=== PATIENT | female | born 1945 | race Caucasian/White ===

== ENCOUNTER 2016-10-20 04:05 | Emergency (ER) | payer MEDICARE, OTHER ==
[2016-10-20 04:10] VITALS: BP 148/81
== END 2016-10-20 05:16 | disposition left against medical advice (07) ==
LOC: ER 04:05
DX: Z53.21 Procedure and treatment not carried out due to patient leaving prior to being seen by health care provider (principal)

== ENCOUNTER 2018-05-23 05:43 | Emergency (ER) | payer MEDICARE, OTHER ==
[2018-05-23] MEDS ORDERED: ONDANSETRON HCL INJ/PF 4 MG/2 ML SDV IV ONE (06:26)
[2018-05-23] MEDS ORDERED: FENTANYL CITRATE INJ/PF 100 MCG/2 ML AMPUL IV ONE (06:26)
[2018-05-23] MEDS ORDERED: KETOROLAC TROMETHAMINE INJ/PF 30 MG/1 ML SDV IV ONE (06:26)
--- NOTE | 2018-05-23 06:37 | ER Document Report ---
ED General - General Chief Complaint: Flank Pain Stated Complaint: BACK PAIN Time Seen by Provider: 05/23/18 06:21 Primary Care Provider: [facility] [Provider Group] - Follow up in 1 week Notes: 72-year-old female presents with left-sided lower pubic/suprapubic pain radiating to the left flank started 2 days ago, with stinging with urination that she thought was a UTI but is failed to improve with Cipro that she had "lying around" as well as some old "pain pills." Fever chills no history of dental surgery, positive history of stones and infections he denies symptoms down her legs, and denies vomiting but has some mild nausea. History of total hysterectomy. TRAVEL OUTSIDE OF THE [place] IN LAST 30 DAYS: No - Related Data Allergies/Adverse Reactions: codeine [Codeine] Allergy (Verified 06/30/15 19:04) Sulfa (Sulfonamide Antibiotics) Allergy (Verified 06/30/15 19:04) Past Medical History - Social History Smoking Status: Never Smoker Family History: CVA, Malignancy - Past Medical History Cardiac Medical History: Denies: Hx Coronary Artery Disease, Hx Heart Attack, Hx Hypercholesterolemia, Hx Hypertension, Hx Peripheral Vascular Disease, Hx Pulmonary Embolism, Hx Heart Murmur Pulmonary Medical History: Denies: Hx Asthma, Hx Bronchitis, Hx COPD, Hx Pneumonia, Hx Tuberculosis Neurological Medical History: Denies: Hx Cerebrovascular Accident, Hx Seizures Endocrine Medical History: Denies: Hx Diabetes Mellitus Type 1 Renal/ Medical History: Reports: Hx Kidney Stones. Denies: Hx Peritoneal Dialysis GI Medical History: Reports: Hx Hepatitis - C Infectious Medical History: Reports: Hx Hepatitis - C Past Surgical History: Reports: Hx Appendectomy, Hx Hysterectomy, Hx Kidney (Renal Surgery) - Removal of Kidney stones, Hx Oral Surgery. Denies: Hx Pacemaker - Immunizations Hx Diphtheria, Pertussis, Tetanus Vaccination: Yes Hx Pneumococcal Vaccination: 01/21/07 Review of Systems - Review of Systems Notes: REVIEW OF SYSTEMS GEN: Denies fever, chills, weight loss ENT: Denies sore throat, nasal discharge, ear pain EYES: Denies blurry vision, eye pain, discharge CV: Denies chest pain, palpitations, edema RESP: Denies cough, shortness of breath, wheezing GI: Dental pain nausea dysuria MSK: Denies joint pain/swelling, edema, SKIN: Denies rash, skin lesions LYMPH: Denies swollen glands/lymph nodes NEURO: Denies headache, focal weakness or numbness, dizziness PSYCH: Denies depression, suicidal or homicidal ideation PHYSICAL EXAMINATION General: No acute distress, well-nourished Head: Atraumatic, normocephalic ENT: Mouth normal, oropharynx moist, no exudates or tonsillar enlargement Eyes: Conjunctiva normal, pupils equal, lids normal Neck: No JVD, supple, no guarding CVS: Normal rate, regular rhythm, no murmurs Resp: No resp distress, equal and normal breath sounds bilaterally GI: Nondistended, soft, moderate left sided suprapubic tenderness to palpation, no rebound or guarding Ext: No deformities, no edema, normal range of motion in upper and lower ext Back: Paraspinous versus CVA tenderness Skin: No rash, warm Lymphatic: No lymphadeopathy noted Neuro: Awake, alert. Face symmetric. GCS 15. Physical Exam - Vital signs Vitals: Temp Pulse Resp BP Pulse Ox 97.6 F 66 20 151/84 H 98 05/23/18 05:54 05/23/18 05:54 05/23/18 05:54 05/23/18 05:54 05/23/18 05:54 Course - Re-evaluation Re-evalutation: 05/23/18 06:37 Abdominal and flank pain in a patient with a history of both UTIs and kidney st ones. She has very minimal tenderness in the anterior portion of the abdomen but does have CVA tenderness. Will test for kidney stone with CT, check labs and urine. Will treat pain. 05/23/18 13:28 Labs normal except for positive UTI. CT negative for kidney stone. Pain relieved with opioids in the ED. Discharge home with short course of opioids given the severity of her pain, Zofran, and Ceftin. Insert discharge 05/23/18 13:28 I have discussed with the patient there likely diagnosis, aftercare plan, follow-up plans and my usual and customary return precautions. They verbalized understanding of this. - Vital Signs Vital signs: Temp Pulse Resp BP Pulse Ox 98.5 F 55 L 16 137/66 H 100 05/23/18 08:08 05/23/18 08:08 05/23/18 08:08 05/23/18 08:08 01/31/19 08:08 - Laboratory Result Diagrams: 05/23/18 06:15 05/23/18 06:15 Laboratory results interpreted by me: 05/23/18 05/23/18 05/23/18 06:15 06:15 06:15 Monocytes % 13.4 H Chloride 108 H Est GFR ( Amer) 55 L Est GFR (Non-Af Amer) 46 L Ur Leukocyte Esterase MODERATE H - Diagnostic Test Radiology reviewed: Image reviewed, Reports reviewed Discharge - Discharge Clinical Impression: Pyelonephritis Condition: Good Disposition: HOME, SELF-CARE Instructions: Antinausea Medication ([facility]), Oral Narcotic Medication ([facility]), Pyelonephritis ([facility]) Prescriptions: Cefuroxime Axetil [Ceftin 500 mg Tablet] 1 tab PO BID #20 tablet Ondansetron HCl [Zofran 4 mg Tablet] 1 - 2 tab PO Q4H PRN #10 tablet PRN Reason: Oxycodone HCl/Acetaminophen [Percocet 5-325 mg Tablet] 1 tab PO ASDIR PRN #15 tab PRN Reason: Referrals: [facility] [Provider Group] - Follow up in 1 week
[2018-05-23 06:44] LABS: ABSOLUTE BASOPHILS # (AUTO) 0.1 10^3/uL (0.0-0.2); ABSOLUTE EOSINOPHILS # (AUTO) 0.2 10^3/uL (0.0-0.6); ABSOLUTE LYMPHOCYTES (AUTO) 3.8 10^3/uL (0.5-4.7); ABSOLUTE MONOCYTES (AUTO) 1.3 10^3/uL (0.1-1.4); ABSOLUTE NEUT (AUTO) 4.2 10^3/uL (1.7-8.2); BASOPHILS % (AUTO) 0.6 % (0-2); EOSINOPHILS % (AUTO) 2.6 % (0-6); HEMATOCRIT 39.9 % (36.0-47.0); HEMOGLOBIN 13.7 g/dL (12.0-15.5); LYMPHOCYTES % (AUTO) 39.7 % (13-45); MEAN CORPUSCULAR HGB CONC 34.4 g/dL (32.0-36.0); MEAN CORPUSCULAR VOLUME 90 fl (80-97); MONOCYTES % (AUTO) 13.4 % (3-13); PLATELET COUNT 369 10^3/uL (150-450); RED BLOOD COUNT 4.42 10^6/uL (3.72-5.28); RED CELL DISTRIBUTION WIDTH 13.6 % (11.5-14.0); SEGMENTED NEUTROPHILS % (AUTO) 43.7 % (42-78); TOTAL CELLS COUNTED % (AUTO) 100 %; WHITE BLOOD COUNT 9.6 10^3/uL (4.0-10.5)
[2018-05-23 06:51] LABS: APPEARANCE,URINE SLIGHTLY-CLOUDY; BILIRUBIN,URINE NEGATIVE (NEGATIVE); COLOR,URINE YELLOW; GLUCOSE, URINE NEGATIVE (NEGATIVE); KETONES,URINE NEGATIVE (NEGATIVE); LEUKOCYTE ESTERASE,URINE MODERATE (NEGATIVE); NITRITE,URINE NEGATIVE (NEGATIVE); PROTEIN,URINE NEGATIVE (NEGATIVE); UROBILINOGEN,URINE NEGATIVE mg/dL (<2.0)
[2018-05-23 07:01] LABS: ANION GAP 9 (5-19); BLOOD UREA NITROGEN 18 mg/dL (7-20); CALCIUM 9.4 mg/dL (8.4-10.2); CARBON DIOXIDE 23 mmol/L (22-30); CHLORIDE 108 mmol/L (98-107); GLUCOSE 93 mg/dL (75-110); POTASSIUM 4.4 mmol/L (3.6-5.0); SODIUM 139.5 mmol/L (137-145)
[2018-05-23] MEDS ORDERED: OXYCODONE-ACETAMINOPHEN 5-325 MG TABLET PO ONE (07:27)
--- NOTE | 2018-05-23 07:33 | RADIOLOGY REPORT (SQ) ---
EXAM DESCRIPTION: CT ABDOMEN PELVIS WITHOUT IV CONTRAST COMPLETED DATE/TME: 05/23/2018 06:26 CLINICAL HISTORY: 72 years Female, History of stones, left flank pain Comparison: None. Technique: No contrast. Coronal and sagittal reformat. This exam was performed according to our departmental dose-optimization program, which includes automated exposure control, adjustment of the mA and/or kV according to patient size and/or use of iterative reconstruction technique.[facility]: Dose Right [facility]: CareDose [facility]: Dose Right [facility]: Teradose 4D [facility]: GigsTime LIMITATIONS: None Findings: Appendectomy. Cholecystectomy. Moderate fat replacement of the pancreatic head. Likely benign renal cyst(s), not definitively characterized. Punctate right renal stone. Colonic diverticulosis. Stool retention. Degenerative disc disease. Unenhanced lower thorax, abdominopelvic structures, and musculoskeleton appear otherwise grossly unremarkable. Impression: No acute findings. Punctate right nephrolithiasis.
[2018-05-23 08:10] VITALS: BP 137/66
== END 2018-05-23 08:40 | disposition home or self-care (01) ==
LOC: ER 05:43
DX: N12 Tubulo-interstitial nephritis, not specified as acute or chronic (principal); Z87.442 Personal history of urinary calculi; Z88.5 Allergy status to narcotic agent; Z88.2 Allergy status to sulfonamides
CPT/HCPCS: 99284; 96374; 96375; 36415; 87086; 85025; 80048; 81001; 74176; J3010; J1885; A9270; J2405